=== PATIENT | female | born 1970 | race African-American/Black ===

== ENCOUNTER 2023-04-14 10:32 | Day surgery (SDC) | payer OTHER ==
[2023-04-06 17:23] VITALS: BMI 27.3
[2023-04-14 11:11] VITALS: BP 126/75; PULSE 66; RESP 16; TEMP 97.8
== END 2023-04-14 11:14 | disposition home or self-care (01) ==
LOC: FASU-ENDO 10:32
PROVIDERS: ATTEND Internal Medicine Gastroenterology
PROC: 0DJD8ZZ Inspection of Lower Intestinal Tract, Via Natural or Artificial Opening Endoscopic (ICD-10-PCS; principal; 2023-04-14)
DX: Z53.8 Procedure and treatment not carried out for other reasons (principal); Z12.11 Encounter for screening for malignant neoplasm of colon
CPT/HCPCS: 81025

== ENCOUNTER 2023-09-08 09:51 | Day surgery (SDC) | payer OTHER ==
[2023-09-01 08:36] VITALS: BMI 27.3
[2023-09-08] MEDS ORDERED: PROPOFOL 120 ML ONE (11:18)
[2023-09-08 11:56] VITALS: TEMP 97.1
[2023-09-08 11:58] VITALS: BP 102/63; PULSE 68; RESP 19
== END 2023-09-08 12:15 | disposition home or self-care (01) ==
LOC: FASU-ENDO 09:51
PROVIDERS: ATTEND Internal Medicine Gastroenterology
PROC: 0DJD8ZZ Inspection of Lower Intestinal Tract, Via Natural or Artificial Opening Endoscopic (ICD-10-PCS; principal; 2023-09-08 11:21)
DX: Z12.11 Encounter for screening for malignant neoplasm of colon (principal); K64.1 Second degree hemorrhoids; K64.8 Other hemorrhoids
CPT/HCPCS: 81025